=== PATIENT | male | born 1945 | race Caucasian/White ===

== ENCOUNTER 2016-12-27 09:53 | Inpatient (IN) | payer MEDICARE, OTHER ==
[~2016-12-27] VITALS: Ht 177.8 cm; Wt 83.1 kg
--- NOTE | 2016-12-28 07:20 | ER ---
ADMIT: 12/27/2016 RM/LOC: 432 [facility] MR#: [id number] [id number] [place], [place] [address] AYDEN LUIS E [address] [place] [address] Emergency Room Report SEX: M AGE: 71 : 1945 DATE: 12/27/2016 CHIEF COMPLAINT: Cough, fever, chills. HISTORY OF PRESENT ILLNESS: The patient is a 71-year-old male with history of lung cancer status post resection, left lower lobe, and chemo radiation years ago. He is currently on Opdivo. He presents to the ER complaining of 2-3 days of worsening cough, fever, chills, and sweats. The patient does have some baseline shortness of breath, but is worse at this time. He is not oxygen dependent. He has not been on steroids recently for his COPD. REVIEW OF SYSTEMS: Ten-point review of systems is done and otherwise negative except as in HPI. PAST MEDICAL HISTORY: Significant for lung cancer, COPD, and PE. MEDICATIONS: See nurse's note. He is on: 1. Xarelto. 2. Opdivo. ALLERGIES: SEE NURSE'S NOTE. SOCIAL HISTORY: The patient still smokes about a half pack a day. At his peak, he was smoking five packs a day. PHYSICAL EXAMINATION: VITAL SIGNS: Initial blood pressure is 121/71, pulse 125, respirations 16, temp 101.5, sats 98% on room air. HEENT: Head is atraumatic. NECK: Supple. Airway is patent. HEART: Tachycardic. LUNGS: Show he does have some rhonchorous breath sounds, more noticeable on the left than the right. ABDOMEN: Soft. SKIN: Warm and dry. EXTREMITIES: He has no pedal edema. No calf tenderness. SKIN: No skin lesions or rashes. The patient is not cyanotic. LABORATORY AND X-RAY DATA: Chest x-ray shows what could be left lower lobe pneumonia. White count is 19.6, with an ANC of 16.5. Hemoglobin is 13.3. Potassium 3.5, phosphorus is 1.2. Cardiac enzymes are negative x1. INR is 1.12. Lactic acid is 1.7. EKG shows sinus tachycardia, no ST elevation or acute WI. EMERGENCY DEPARTMENT COURSE: We did our sepsis routine on the patient. Based ADMIT: 12/27/2016 RM/LOC: 432 [facility] MR#: [id number] [address] [address] [facility] [address] [place] [address] Emergency Room Report SEX: M AGE: 71 : 1945 on his history, exam, and chest x-ray, I do believe he probably has a left lower lobe pneumonia. We did get IV Levaquin started in the Emergency Department. His blood pressures did drop some after he was given Levaquin and we started our fluid resuscitation at 30 mL/kg on the patient. As he normally sees Dr. Foster, I have contacted Dr. Pelletier who is covering today and will be writing admission orders for the patient. The patient is admitted in stable condition, to go to the PCU. DIAGNOSES: 1. Pneumonia. 2. Chronic obstructive pulmonary disease. 3. Lung cancer. Severo Eric MD/ ashlyn JOB #: [id number] CC: Reginald Foster MD, Attending Physician Reginald Foster MD, Family Physician
--- NOTE | 2017-01-01 08:45 | HP ---
ADMIT: 12/27/2016 RM/LOC: 432 [facility] MR#: [id number] 26[address] [facility] [address] [place], [place] [address] AYDEN COLLAZO [address] [place] [address] History and Physical SEX: M AGE: 71 : 1945 DATE OF SERVICE: CHIEF COMPLAINT: Fevers and chills. HISTORY OF PRESENT ILLNESS: Mr. Collazo is a 71-year-old male with a past medical history significant for COPD and lung cancer, who generally gets his care by Dr. Foster. He was in his usual state of health last week and actually just had followup with his engine buildup mechanic, Samantha Tang. At that time, he had a CT scan performed and was told it was unremarkable. Then on Sunday and Sunday, he began to have increased cough and difficulty breathing. By Sunday, he was having elevated temperatures with a maximum temperature of 104 early that morning. He took some Tylenol, but fever persisted. He called the oncology center in the morning when they opened and they recommended he go to the emergency department for further evaluation. At this time, he denies any cough, but his reports he was having difficulty breathing over the last 24 hours. He denies any chest pain. No abdominal complaints. No urinary complaints. PAST MEDICAL HISTORY: 1. Non-small cell lung cancer. 2. COPD. 3. Tobacco use disorder. 4. History of DVT, on chronic anticoagulation. PAST SURGICAL HISTORY: 1. The patient underwent a bronchoscopy. 2. Appendectomy. 3. Lithotripsy for kidney stones. 4. Bilateral carpal tunnel. MEDICATIONS: 1. Xarelto 20 mg daily. 2. Albuterol p.r.n. 3. Breo 100 mcg daily. 4. Tylenol p.r.n. 5. Ranitidine p.r.n. ALLERGIES: THE PATIENT IS ALLERGIC TO ASPIRIN, MORPHINE, PENICILLIN, CODEINE, AND VANCOMYCIN. SOCIAL HISTORY: The patient is a smoker. He denies illicit drug use. 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 He is and his is with him here today. He is generally independent with his ADLs. FAMILY HISTORY: Significant for lung cancer in his father and brother. REVIEW OF SYSTEMS: As per HPI, otherwise reviewed and negative. PHYSICAL EXAMINATION: VITAL SIGNS: Temperature 98.4, pulse 89, respiratory ADMIT: 12/27/2016 RM/LOC: 432 [facility] MR#: [id number] [address] [address] [facility] [address] [place] [address] History and Physical SEX: M AGE: 71 : 1945 rate 18, blood pressure 114/59, and oxygen saturation 97% on room air. GENERAL: The patient is awake, alert, in no acute distress. Pleasant and cooperative. HEENT: Within normal limits. HEART: Regular rate and rhythm. No murmurs. No rubs or gallops. PULMONOLOGY: No crackles or wheezes. No accessory muscle use. ABDOMEN: Soft, nontender, nondistended. Normal bowel sounds. No organomegaly. EXTREMITIES: Warm and dry. No edema. LABORATORY DATA: Please see electronic record for full details, but of note, his white blood cell count was elevated at 19.6. Procalcitonin was normal at less than 0.05. Urinalysis was remarkable for trace blood, trace leukocyte esterase. Hemoglobin stable at 13.3. Creatinine within normal limits at 1.0. IMAGING: Chest x-ray shows hyperinflation with interstitial markings in the left and mid lower lungs. EKG shows sinus tachycardia with a rate of 117. CULTURES: Blood and urine cultures have been drawn and are pending. ASSESSMENT/PLAN: 1. Probable community-acquired pneumonia. He has been initiated on Levaquin, he will continue with this. 2. Chronic obstructive pulmonary disease. No wheezing or other signs of exacerbation at this time. We will continue with his Breo and albuterol. We will initiate steroids if needed. 3. Known non-small cell lung cancer. 4. History of deep venous thrombosis, on chronic anticoagulation. We will continue with his Xarelto. Sherron Pelletier MD/ ashlyn JOB #: [id number] CC: Reginald Foster, Attending Physician Reginald Foster, Family Physician
--- NOTE | 2017-02-08 08:18 | DS ---
ADMIT: 12/27/2016 RM/LOC: 432 [facility] MR#: [id number] [address] [address] AYDEN LUIS [address] [place] [address] General Discharge Summary SEX: M AGE: 71 : 1945 ADMISSION DATE: 12/27/2016 DISCHARGE DATE: 12/30/2016 PRIMARY DIAGNOSES: 1. Pneumonia. 2. Chronic obstructive pulmonary disease exacerbation. 3. History of non-small cell carcinoma of left lung. 4. Heartburn/acid reflux. 5. History of deep venous thrombosis (on Xarelto for anticoagulation). 6. Hypokalemia. HISTORY OF PRESENT ILLNESS: The patient is a 71-year-old, white male with a past medical history significant for COPD and lung cancer. He is followed by bottom sprayer as well as an oncologist. 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 The cough worsened. He began to have some elevated fevers with a maximum temperature of 104 early in the day on his drive home. He returned home from his route and went to the Oncology Center. Because of his fever and history of COPD and lung cancer, he was sent to the emergency room for evaluation. Evaluation in the emergency room showed that he had pneumonia, and he was admitted for IV antibiotics and treatments. LABORATORY AND X-RAY: Admission labs included an elevated white blood cell count of 19.6. Procalcitonin level was normal at less than 0.05. Urinalysis was remarkable for a trace of blood and trace of leukocyte esterase. Hemoglobin 13.3. Creatinine 1.0. Chest x-ray showed hyperinflation with interstitial markings in the left and mid lower lungs. EKG showed sinus tachycardia with a rate of 117. Additional pertinent labs and x-ray included a chest x-ray on 12/30/2016 that showed hyperinflation with chronic interstitial markings. There are also some persistent markings in the left lung. Urine culture showed sparse multiple organisms. Blood culture showed no growth after 5 days' incubation. Prior to discharge on 12/30; sodium was 139, potassium 3.9, BUN 5, creatinine 0.9, glucose 93, alkaline phosphatase 57, AST 21, ALT 22, procalcitonin level less than 0.05. White blood cell count normal at 9.4, hemoglobin 11.9, and platelet count 220. HOSPITAL COURSE: The patient was evaluated in the emergency room on 12/27/2016, and with an elevated white count, fever, and cough, he was admitted with diagnosis of pneumonia and COPD exacerbation. He was started on IV Levaquin as well as DuoNeb breathing treatments. He was continued on his regular home medications. Chest x-rays were followed on a daily basis. By 12/29/2016, the patient was feeling much better. He had no further shortness of breath, nausea, or vomiting. Still had some low-grade fevers. He was saturating 99% on room air, but overall feeling better. White blood cell count was improving as well. He continued to improve and by 12/30/2016 was feeling much better. No further fevers were noted. Chest x-ray was stable and did not show any definite pneumonia in the left lung. He was therefore set up to be discharged to home in very stable condition on 12/30/2016. ADMIT: 12/27/2016 RM/LOC: 432 [facility] MR#: [id number] [address] [place] [id number] [id number] [place] [address] General Discharge Summary SEX: M AGE: 71 : 1945 DISCHARGE INSTRUCTIONS: The patient was discharged to home on 12/30/2016. MEDICATIONS AT TIME OF DISCHARGE: Included: 1. Xarelto 20 mg daily. 2. Breo Ellipta 1 puff daily. 3. Zantac 75 mg as needed. 4. Tums as needed. 5. Tylenol as needed. 6. Albuterol inhaler as needed. 7. Levaquin 750 mg daily for 10 days. He was to remain on a regular diet. Follow up with his oncologist and bottom sprayer as directed. Follow up with Dr. Foster in the office in 5 to 7 days. Reginald Foster MD/ ashlyn JOB #: [id number] CC: Reginald Foster MD, Attending Physician Reginald Foster MD, Family Physician
== END 2016-12-30 09:50 | disposition home or self-care (01) | DRG 190 ==
LOC: ER 09:53 → 4PCU 11:55
PROVIDERS: ADMIT Family Medicine
DX: J44.0 Chronic obstructive pulmonary disease with (acute) lower respiratory infection (principal); J18.9 Pneumonia, unspecified organism; J44.1 Chronic obstructive pulmonary disease with (acute) exacerbation; K21.9 Gastro-esophageal reflux disease without esophagitis; E87.6 Hypokalemia; F17.210 Nicotine dependence, cigarettes, uncomplicated; Z85.118 Personal history of other malignant neoplasm of bronchus and lung; Z79.01 Long term (current) use of anticoagulants; Z86.718 Personal history of other venous thrombosis and embolism

== ENCOUNTER 2016-12-31 21:14 | Emergency (ER) | payer MEDICARE, OTHER ==
[2017-01-01] MEDS ORDERED: XARELTO20 MG PO (07:11)
[2017-01-01] MEDS ORDERED: BREO ELLIP1 PUFF/DOS IH (07:12)
[2017-01-01] MEDS ORDERED: ACID REDUCER75 MG PO (07:13)
[2017-01-01] MEDS ORDERED: TYLENOL DPS325 MG PO (07:13)
[2017-01-01] MEDS ORDERED: PROAIR RESPICL90 MCG IH (07:13)
[2017-01-01] MEDS ORDERED: LEVAQUIN DPS750 MG PO (07:14)
[2017-01-01] MEDS ORDERED: TUMS DPS500 MG PO (07:14)
--- NOTE | 2017-02-03 18:05 | ER ---
ADMIT: 12/31/2016 RM/LOC: [facility] MR#: [id number] [address] [address] [facility] [address] [place] [address] Emergency Room Report SEX: M AGE: 71 : 1945 DATE: 12/31/2016 CHIEF COMPLAINT: Fever, cough, and sinus drainage. Has been going on for several days. He was actually admitted over the past Sunday and went home on Sunday. He denies any chest pain. He is not having any nausea or vomiting, but does report fevers. REVIEW OF SYSTEMS: Ten-point review of systems is done and otherwise negative except as in HPI. PAST MEDICAL HISTORY: 1. Lung cancer, left lobe with lobectomy. 2. CHF. 3. COPD. MEDICATIONS: Opdivo . ALLERGIES: VANCO AND PENICILLIN. SOCIAL HISTORY: Smokes three cigarettes a day. Denies drug or alcohol use at this time. PHYSICAL EXAMINATION: VITAL SIGNS: He has a temperature of 101.2 with a pulse of 116. Otherwise, his sats were 96% on room air. Blood pressure was fine and respiratory rate was fine. HEENT: Head is atraumatic. Pupils are equal, round, and reactive to light. NECK: Supple. Airway is patent. HEART: Tachycardic. LUNGS: Show he had some coarse breath sounds bilaterally. No wheezes. ABDOMEN: Soft, nontender. SKIN: Warm and dry. NEURO: Grossly normal. He had no pedal edema. ADMIT: 12/31/2016 RM/LOC: [facility] MR#: [id number] [address] [address] [facility] [address] [id number] Emergency Room Report SEX: M AGE: 71 : 1945 LABORATORY DATA: CBC was unremarkable other than hemoglobin of 11.4. Chemistries were unremarkable other than a BNP of 315, which is slightly elevated. Chest x-ray showed nothing acute. EMERGENCY DEPARTMENT COURSE: The patient received Solu-Medrol 125 mg IV in the Emergency Department. We did check a troponin which was normal. Procalcitonin and lactic acid, which were also normal. The patient will be discharged home to continue his current medications, is already on antibiotic and follow up as scheduled with Dr. Foster. He is discharged home in stable condition. DIAGNOSIS: Shortness of breath. Severo Eric MD/ ashlyn JOB #: [id number] CC: Jose Langford MD, Attending Physician Reginald Foster MD, Family Physician
== END 2017-01-01 00:06 | disposition home or self-care (01) ==
LOC: ER 21:14
DX: J18.9 Pneumonia, unspecified organism (principal); J44.9 Chronic obstructive pulmonary disease, unspecified; F17.210 Nicotine dependence, cigarettes, uncomplicated; Z88.0 Allergy status to penicillin; Z88.1 Allergy status to other antibiotic agents; Z90.49 Acquired absence of other specified parts of digestive tract; Z88.6 Allergy status to analgesic agent; Z90.2 Acquired absence of lung [part of]; Z85.118 Personal history of other malignant neoplasm of bronchus and lung